=== PATIENT | female | born 1975 | race Caucasian/White ===

== ENCOUNTER 2017-09-30 12:05 | Emergency (ER) | payer OTHER ==
[~2017-09-30] VITALS: Ht 160 cm; Wt 63.5 kg
[~2017-09-30 12:05] MED LIST: ESOM40CA PO; OXYC-323 PO
[2017-09-30 12:15] VITALS: BP 147/95
--- NOTE | 2017-09-30 12:41 | PHYS DOC ---
General Chief Complaint: LACERATION/AVULSION Stated Complaint: HEAD LAC Time Seen by MD: 12:38 Source: patient Exam Limitations: no limitations Problems: History of Present Illness Initial Comments Patient is a 42-year-old female who comes to the ED complaining of head injury. Patient states this is work comp, states that she stood up under a shelf hitting her head. States she was dazed she's had a headache and some photophobia no nausea no loss of consciousness no neck pain. She was sent to the emergency room because she has a laceration which was bleeding. She says her tetanus is up-to-date, no new or progressive symptoms since the injury. Headache is described as global and throbbing moderate in intensity and worse with bright lights. Agreeable to Tylenol in the emergency department Timing/Duration: 1/2 hour Severity: moderate Modifying Factors: worse with movement, improves with rest Associated Symptoms: headaches, malaise, other Allergies: Coded Allergies: codeine (Unverified Allergy, Unknown, Nausea and Vomiting, 05/29/14) Past Medical History Medical History: no pertinent history Surgical History: noncontributory Social History Smoker: non-smoker Alcohol: none Drugs: none Review of Systems Constitutional: denies chills, denies diaphoresis, denies fever, malaise EENTM: denies eye pain, denies blurred vision, denies ear discharge, denies nose congestion, denies throat swelling, denies mouth swelling Respiratory: denies cough, denies shortness of breath Cardiovascular: denies chest pain, denies palpitations, denies syncope Gastrointestinal: denies nausea, denies vomiting Musculoskeletal: denies back pain, denies muscle pain, denies muscle stiffness , denies neck pain Skin: see HPI Psychiatric/Neurological: headache, denies numbness, denies paresthesia, denies seizure, denies weakness Hematologic/Lymphatic: denies blood clots, denies easy bleeding, denies easy bruising Physical Exam General Appearance: WD/WN, mild distress Eyes: bilateral eye normal inspection, bilateral eye PERRL, bilateral eye EOMI Ear, Nose, Throat: hearing grossly normal, normal ENT inspection, normal pharynx, other (other than the scalp laceration that is normocephalic/ atraumatic with negative Smith sign negative raccoon eyes, no ear or nose discharge no fluid behind TMs bilaterally see below for scalp LAC description) Neck: non-tender, full range of motion, supple Respiratory: normal breath sounds, no respiratory distress Gastrointestinal: non tender, soft Back: no CVA tenderness, no vertebral tenderness Extremities: normal range of motion, non-tender, normal inspection 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, no motor/sensory deficits, alert, normal mood/affect (initially somewhat flat affect however throughout the ED course her baseline personality did return affect appeared to be normal.) , oriented x 3 Skin: warm/dry (1 cm superficial linear clean scalp laceration at the left parietal and contused tissue or hematoma no bony deformity or step-off hemostasis spontaneous prior to ED arrival however wound edges remain ) Laceration/Wound Repair Laceration/Wound Repair : Wound Location: head Wound's Depth, Shape: superficial, linear Wound Length (cm): 1 Wound Explored: clean Irrigated w/ Saline (ccs): 50 Betadine Prep?: Yes Anesthesia: Lidocaine w/ Epi Volume Anesthetic (ccs): 6 Wound Debrided: minimal Wound Repaired With: sutures (3 karrie) Number of Sutures: 3 (Karrie) Layer Closure?: No Sterile Dressing Applied?: No Splint Applied?: No Progress Informed consent obtained, analgesia with lidocaine/epinephrine. After wound anesthetized it was cleansed and irrigated by medic. 3 karrie utilized for good wound edge approximation patient tolerated the procedure well without complications. Wound care was discussed verbally and given in written form see departure instructions. Orders, Labs, Meds No imaging has the patient does appear to have a concussion but no neurologic deficit or progressive symptoms. Her concussion symptoms improved throughout the ED course. I discussed wound care [id number] prescription medications. I discussed activity restrictions modifications as well as time off work and work comp status. I discussed stapled wound care and appropriate follow-up signs and symptoms to monitor for as well as indications for urgent return to the department. The patient's questions were answered to her satisfaction and she expressed agreement and understanding with the treatment plan. Departure Time of Disposition: 13:18 Disposition: 01 HOME, SELF-CARE Diagnosis: Work Comp Head Injury, Scalp Laceration Concussion Condition: GOOD Patient Instructions: Concussion and Brain Injury, [id number], Staple Wound Closure, [id number] Additional Instructions: Please review the patient education handout given by ED staff. No exercise athletics for strenuous exercise until cleared by your doctor. Off work through 10/03, note given. [id number] Tylenol as needed for discomfort. Remain in a cool temperature dimly lit environment for optimal symptom control. Aggressive hydration with Gatorade or water. Follow-up with your doctor in 3-5 days for recheck and further activity restriction modifications. Follow-up with your employer regarding Worker's Compensation. Return to ED or follow-up with your doctor in 7 days for wound check and possible staple removal. Return to ED with new or changing symptoms. VIRGILIO TOMAS DO Sep 30, 2017 12:41
[2017-09-30] MEDS ORDERED: ACETAMINOPHEN 500 MG TABLET PO ONE (12:43)
[2017-09-30] MEDS: ACETAMINOPHEN 500 MG TABLET PO ONE (12:45)
[2017-09-30] MEDS: LIDOCAINE 2%/EPI 1:100,000 20 ML VIAL. IJ ONE (13:00)
== END 2017-09-30 13:31 | disposition home or self-care (01) ==
LOC: ER 12:05
DX: S06.0X0A Concussion without loss of consciousness, initial encounter (principal); S01.01XA Laceration without foreign body of scalp, initial encounter; Z88.5 Allergy status to narcotic agent; W22.01XA Walked into wall, initial encounter; Y93.89 Activity, other specified; Y99.8 Other external cause status; Y92.89 Other specified places as the place of occurrence of the external cause
CPT/HCPCS: 12001; 99283-25

== ENCOUNTER 2017-10-07 09:57 | Emergency (ER) | payer OTHER ==
[2017-10-07 10:00] VITALS: BP 127/75
--- NOTE | 2017-10-07 12:52 | ED.ADGEN ---
Past History Past Medical History: No Pertinent History Past Surgical History: No Surgical History Smoking: Non-smoker Alcohol Use: None Drug Use: None Adult General Chief Complaint Chief Complaint Staple removal HPI HPI Patient is a 42 year male who presents for staple removals of scalp. Sod placed 7 days ago. No complications.[] Review of Systems Review of Systems ROS as per HPI. All other systems were reviewed and found to be within normal limits, except as documented in this note. Allergies Allergies Allergies Coded Allergies Type Severity Reaction Last Updated Verified codeine Allergy Unknown Nausea and Vomiting 05/29/14 No Physical Exam Physical Exam Constitutional: Well developed, well nourished, no acute distress, non-toxic appearance. [] HENT: Normocephalic, karrie left parietal scalp-appropriately healed, bilateral external ears normal, oropharynx moist, no oral exudates, nose normal. [] Eyes: PERRLA, EOMI, conjunctiva normal, no discharge. [] Neck: Normal range of motion, no tenderness, supple, no stridor. [] Neurologic: Alert and oriented X 3, normal motor function, normal sensory function, no focal deficits noted. [] Psychologic: Affect normal, judgement normal, mood normal. [] Current Patient Data Vital Signs Vital Signs Date Time Temp Pulse Resp B/P (MAP) Pulse Ox O2 Delivery O2 Flow Rate FiO2 10/07/17 10:00 98.0 67 16 99 Room Air EKG EKG [] Radiology/Procedures Radiology/Procedures [] Course & Med Decision Making Course & Med Decision Making Pertinent Labs and Imaging studies reviewed. (See chart for details) [Karrie removed] Final Impression Final Impression [] Problems: Dragon Disclaimer Dragon Disclaimer This electronic medical record was generated, in whole or in part, using a voice recognition dictation system. JIAN COSTA DO Oct 07, 2017 12:51
== END 2017-10-07 10:20 | disposition home or self-care (01) ==
LOC: ER 09:57
DX: S01.01XD Laceration without foreign body of scalp, subsequent encounter (principal); Z88.5 Allergy status to narcotic agent; X58.XXXD Exposure to other specified factors, subsequent encounter
CPT/HCPCS: 99281

== ENCOUNTER 2021-11-10 11:56 | Emergency (ER) | payer OTHER ==
[~2021-11-10] VITALS: Ht 160 cm; Wt 72.0 kg
[~2021-11-10 11:56] MED LIST changes: -OXYC-323 PO; +OXYC1TAB15 PO
[2021-11-10] MEDS ORDERED: FAMOTIDINE 20 MG/2 ML VIAL IVP ONE (13:00)
[2021-11-10] MEDS ORDERED: LIDO:MAALOX 1:1 20 ML SINGLE DOSE. PO ONE (13:00)
[2021-11-10] MEDS ORDERED: ONDANSETRON PF 4 MG/2 ML VIAL. IVP ONE (13:00)
[2021-11-10 13:15] LABS: AMPHETAMINE/METHAMPHETAMINE NEG (NEG); BARBITURATES NEG (NEG); BENZODIAZEPINES NEG (NEG); CANNABINOIDS NEG (NEG); COCAINE NEG (NEG); METHADONE NEG (NEG); OPIATES NEG (NEG); PHENCYCLIDINE NEG (NEG)
[2021-11-10 13:20] LABS: BILIRUBIN,URINE NEG (NEG); CLARITY,URINE CLEAR; COLOR,URINE YELLOW; GLUCOSE,URINE NEG (NEG)
[2021-11-10 13:21] LABS: BACTERIA,URINE 0 /HPF (0-FEW); NITRITE,URINE NEG (NEG); SQUAMOUS EPITHELIAL CELL,UR MANY /LPF; UROBILINOGEN,URINE 0.2 mg/dL (0.2 mg/dL); WBC,URINE OCC /HPF (0-4)
--- NOTE | 2021-11-10 13:30 | RAD ---
EXAM: Abdomen, single view. HISTORY: Pain. COMPARISON: None. FINDINGS: Frontal views of the abdomen are obtained. There is no bowel obstruction. There is a small amount of stool within the proximal colon. There is no free air. IMPRESSION: Nonobstructive bowel gas pattern. Electronically signed by: Josette Trinidad MD (11/10/2021 1:28 PM) [id number]
[2021-11-10 13:46] LABS: BASO # 0.1 x10^3/uL (0.0-0.2); BASO % 2 % (0-3); EOS % 1 % (0-3); HEMATOCRIT 34.5 % (36.0-47.0); HEMOGLOBIN 10.9 g/dL (12.0-15.5); LYMPH # 0.7 x10^3/uL (1.0-4.8); LYMPH % 11 % (24-48); MEAN CORPUSCULAR HEMOGLOBIN 23 pg (25-35); MEAN CORPUSCULAR HGB CONC 32 g/dL (31-37); MEAN CORPUSCULAR VOLUME 72 fL (79-100); MONO # 0.3 x10^3/uL (0.0-1.1); MONO % 5 % (0-9); NEUT % 81 % (31-73); PLATELET COUNT 215 x10^3/uL (140-400); RED BLOOD COUNT 4.81 x10^6/uL (3.50-5.40); RED CELL DISTRIBUTION WIDTH 16.5 % (11.5-14.5); WHITE BLOOD COUNT 6.2 x10^3/uL (4.0-11.0)
[2021-11-10] MEDS ORDERED: IOHEXOL 300 MG/ML 75 ML VIAL. IV ONE (14:15)
[2021-11-10] MEDS ORDERED: CONTRAST GIVEN. MC PRN (14:30)
[2021-11-10 14:44] LABS: CALCIUM 8.7 mg/dL (8.5-10.1); CREATININE 0.8 mg/dL (0.6-1.0); GFR 77.2; POTASSIUM 3.3 mmol/L (3.5-5.1)
--- NOTE | 2021-11-10 14:44 | RAD ---
EXAM: Abdomen and pelvis CT with intravenous contrast. HISTORY: Pain. TECHNIQUE: Computed tomographic images of the abdomen and pelvis were obtained following the administ ration of intravenous contrast. Multiplanar reformatting was performed. *One or more of the following individualized dose reduction techniques were utilized for this examina tion: 1. Automated exposure control. 2. Adjustment of the mA and/or kV according to patient size. 3. Use of iterative reconstruction technique. COMPARISON: None. FINDINGS: Evaluation of the lower thorax is unremarkable. No hepatic lesion is seen. The gallbladder is surgically absent. There is a prominent common bile duct, likely due to reservoir effect status po st cholecystectomy. The pancreas, spleen and adrenal glands are unremarkable. There is a tiny simple left renal cyst. There is no hydronephrosis. There is no appendicitis. There is no bowel obstruction. There is distal colonic diverticulosis. Ther e is no diverticulitis. The bladder is nearly empty. There are multiple uterine fibroids. The aorta i s normal in caliber. There is no lymphadenopathy. There is no acute or suspicious osseous finding. Th ere are degenerative changes involving the spine. IMPRESSION: 1. No acute abdominal or pelvic finding. 2. Colonic diverticulosis. 3. Biliary ductal dilatation likely due to reservoir effect status post cholecystectomy. 4. Multiple uterine fibroids. Electronically signed by: Josette Trinidad MD (11/10/2021 2:42 PM) [id number]
[2021-11-10 14:50] LABS: ALBUMIN 3.9 g/dL (3.4-5.0); TOTAL BILIRUBIN 0.4 mg/dL (0.2-1.0); TOTAL PROTEIN 7.8 g/dL (6.4-8.2)
[2021-11-10] MEDS ORDERED: FAMO20TA5 PO (15:24)
--- NOTE | 2021-11-10 15:24 | PHYS DOC ---
Past History Past Medical History: No Pertinent History Past Surgical History: Cholecystectomy, Tonsillectomy Smoking: Non-smoker Alcohol Use: None Drug Use: None Adult General Chief Complaint Chief Complaint: ABDOMINAL PAIN HPI HPI Patient is a 46-year-old female patient presenting to the ED today complaining of 5 out of 10 sharp epigastric abdominal pain, symptoms have been going on for 10 days. Patient denies any fever, nausea, vomiting, diarrhea. Reports history of cholecystectomy and gastritis. Denies any relieving factors to her symptoms. States symptoms are worse on palpating her epigastric region. Review of Systems Review of Systems Constitutional: Denies fever or chills [] Eyes: Denies change in visual acuity, redness, or eye pain [] HENT: Denies nasal congestion or sore throat [] Respiratory: Denies cough or shortness of breath [] Cardiovascular: No additional information not addressed in HPI [] GI: Reports epigastric abdominal pain, denies nausea, vomiting, bloody stools or diarrhea [] : Denies dysuria or hematuria [] Musculoskeletal: Denies back pain or joint pain [] Integument: Denies rash or skin lesions [] Neurologic: Denies headache, focal weakness or sensory changes [] All other systems were reviewed and found to be within normal limits, except as documented in this note. Current Medications Current Medications Current Medications Medications (Trade) Dose Ordered Sig/Juana Start Time Stop Time Status Last Admin Dose Admin Famotidine (Pepcid Vial) 20 mg 1X ONCE 11/10/21 13:00 11/10/21 13:07 DC 11/10/21 13:37 20 MG Fentanyl Citrate (Fentanyl 2ml Vial) 50 mcg 1X ONCE 11/10/21 13:00 11/10/21 13:07 DC Info (Do NOT chart on this entry -- for MONITORING) 1 each PRN DAILY PRN 11/10/21 14:30 11/12/21 14:29 Iohexol (Omnipaque 300 Mg/ml) 75 ml 1X ONCE 11/10/21 14:15 11/10/21 14:16 DC 11/10/21 14:20 75 ML Multi-Ingredient Mouthwash/Gargle (Gi Cocktail) 20 ml 1X ONCE 11/10/21 13:00 11/10/21 13:07 DC 11/10/21 13:24 20 ML Ondansetron HCl (Zofran) 4 mg 1X ONCE 11/10/21 13:00 11/10/21 13:07 DC 11/10/21 13:35 4 MG Allergies Allergies Allergies Coded Allergies Type Severity Reaction Last Updated Verified Penicillins Allergy Unknown 11/10/21 Yes codeine Allergy Unknown Nausea and Vomiting 05/29/14 No shellfish derived Allergy Unknown 11/10/21 Yes Physical Exam Physical Exam Constitutional: Well developed, well nourished, no acute distress, non-toxic appearance. [] HENT: Normocephalic, atraumatic, bilateral external ears normal, oropharynx moist, no oral exudates, nose normal. [] Eyes: PERRLA, EOMI, conjunctiva normal, no discharge. [] Neck: Normal range of motion, no tenderness, supple, no stridor. [] Cardiovascular:Heart rate regular rhythm, no murmur [] Lungs & Thorax: Bilateral breath sounds clear to auscultation [] Abdomen: Bowel sounds normal, soft, no tenderness, no masses, no pulsatile masses. [] Skin: Warm, dry, no erythema, no rash. [] Back: No tenderness, no CVA tenderness. [] Extremities: No tenderness, no cyanosis, no clubbing, ROM intact, no edema. [] Neurologic: Alert and oriented X 3, normal motor function, normal sensory function, no focal deficits noted. [] Psychologic: Affect normal, judgement normal, mood normal. [] Current Patient Data Vital Signs Vital Signs Date Time Temp Pulse Resp B/P (MAP) Pulse Ox O2 Delivery O2 Flow Rate FiO2 11/10/21 12:20 98.6 111 169/97 (121) 100 Room Air Lab Results Laboratory Tests Test 11/10/21 12:35 11/10/21 12:41 11/10/21 13:18 11/10/21 14:02 Urine Collection Type Clean catch Urine Color Yellow Urine Clarity Clear Urine pH 5.5 Urine Specific [place] 1.025 Urine Protein Trace (NEG-TRACE) Urine Glucose (UA) Neg mg/dL (NEG) Urine Ketones (Stick) Neg mg/dL (NEG) Urine Blood Mod (NEG) Urine Nitrite Neg (NEG) Urine Bilirubin Neg (NEG) Urine Urobilinogen Dipstick 0.2 mg/dL (0.2 mg/dL) Urine Leukocyte Esterase Neg (NEG) Urine RBC 3-5 /HPF (0-2) Urine WBC Occ /HPF (0-4) Urine Squamous Epithelial Cells Many /LPF Urine Bacteria 0 /HPF (0-FEW) Urine Opiates Screen Neg (NEG) Urine Methadone Screen Neg (NEG) Urine Barbiturates Neg (NEG) Urine Phencyclidine Screen Neg (NEG) Urine Amphetamine/Methamphetamine Neg (NEG) Urine Benzodiazepines Screen Neg (NEG) Urine Cocaine Screen Neg (NEG) Urine Cannabinoids Screen Neg (NEG) Urine Ethyl Alcohol Neg (NEG) POC Urine HCG, Qualitative hcg negative (Negative) White Blood Count 6.2 x10^3/uL (4.0-11.0) Red Blood Count 4.81 x10^6/uL (3.50-5.40) Hemoglobin 10.9 g/dL (12.0-15.5) L Hematocrit 34.5 % (36.0-47.0) L Mean Corpuscular Volume 72 fL (79-100) L Mean Corpuscular Hemoglobin 23 pg (25-35) L Mean Corpuscular Hemoglobin Concent 32 g/dL (31-37) Red Cell Distribution Width 16.5 % (11.5-14.5) H Platelet Count 215 x10^3/uL (140-400) Neutrophils (%) (Auto) 81 % (31-73) H Lymphocytes (%) (Auto) 11 % (24-48) L Monocytes (%) (Auto) 5 % (0-9) Eosinophils (%) (Auto) 1 % (0-3) Basophils (%) (Auto) 2 % (0-3) Neutrophils # (Auto) 5.0 x10^3uL (1.8-7.7) Lymphocytes # (Auto) 0.7 x10^3/uL (1.0-4.8) L Monocytes # (Auto) 0.3 x10^3/uL (0.0-1.1) Eosinophils # (Auto) 0.0 x10^3/uL (0.0-0.7) Basophils # (Auto) 0.1 x10^3/uL (0.0-0.2) Sodium Level 140 mmol/L (136-145) Potassium Level 3.3 mmol/L (3.5-5.1) L Chloride Level 104 mmol/L (98-107) Carbon Dioxide Level 25 mmol/L (21-32) Anion Gap 11 (6-14) Blood Urea Nitrogen 9 mg/dL (7-20) Creatinine 0.8 mg/dL (0.6-1.0) Estimated GFR (Cockcroft-Gault) 77.2 BUN/Creatinine Ratio 11 (6-20) Glucose Level 93 mg/dL (70-99) Calcium Level 8.7 mg/dL (8.5-10.1) Total Bilirubin 0.4 mg/dL (0.2-1.0) Aspartate Amino Transferase (AST) 19 U/L (15-37) Alanine Aminotransferase (ALT) 20 U/L (14-59) Alkaline Phosphatase 67 U/L (46-116) Total Protein 7.8 g/dL (6.4-8.2) Albumin 3.9 g/dL (3.4-5.0) Albumin/Globulin Ratio 1.0 (1.0-1.7) Lipase 135 U/L (73-393) Ethyl Alcohol Level < 10 mg/dL (0-10) EKG EKG [] Radiology/Procedures Radiology/Procedures []PROCEDURE: CT ABD PELV W/ IV CONTRST ONLY EXAM: Abdomen and pelvis CT with intravenous contrast. HISTORY: Pain. TECHNIQUE: Computed tomographic images of the abdomen and pelvis were obtained following the administration of intravenous contrast. Multiplanar reformatting was performed. *One or more of the following individualized dose reduction techniques were utilized for this examination: 1. Automated exposure control. 2. Adjustment of the mA and/or kV according to patient size. 3. Use of iterative reconstruction technique. COMPARISON: None. FINDINGS: Evaluation of the lower thorax is unremarkable. No hepatic lesion is seen. The gallbladder is surgically absent. There is a prominent common bile duct, likely due to reservoir effect status post cholecystectomy. The pancreas, spleen and adrenal glands are unremarkable. There is a tiny simple left renal cyst. There is no hydronephrosis. There is no appendicitis. There is no bowel obstruction. There is distal colonic diverticulosis. There is no diverticulitis. The bladder is nearly empty. There are multiple uterine fibroids. The aorta is normal in caliber. There is no lymphadenopathy. There is no acute or suspicious osseous finding. There are degenerative changes involving the spine. IMPRESSION: 1. No acute abdominal or pelvic finding. 2. Colonic diverticulosis. 3. Biliary ductal dilatation likely due to reservoir effect status post cholecystectomy. 4. Multiple uterine fibroids. Electronically signed by: Josette Trinidad MD (11/10/2021 2:42 PM) [id number] DICTATED AND SIGNED BY: JOSETTE TRINIDAD MD DATE: 11/10/21 1439 CC: CUATE WATTS APRN; JASMEET MOROCHO DO ~MTH0 0 PROCEDURE: ABDOMEN SUPINE & UPRIGHT EXAM: Abdomen, single view. HISTORY: Pain. COMPARISON: None. FINDINGS: Frontal views of the abdomen are obtained. There is no bowel obstruction. There is a small amount of stool within the proximal colon. There is no free air. IMPRESSION: Nonobstructive bowel gas pattern. Electronically signed by: Josette Trinidad MD (11/10/2021 1:28 PM) [id number] DICTATED AND SIGNED BY: JOSETTE TRINIDAD MD DATE: 11/10/21 1327 CC: CUATE WATTS APRN; JASMEET MOROCHO DO ~MTH0 0 Heart Score C/O Chest Pain: N/A Risk Factors: Risk Factors: DM, Current or recent (<one month) smoker, HTN, HLP, family history of CAD, obesity. Risk Scores: Risk Factors: DM, Current or recent (<one month) smoker, HTN, HLP, family history of CAD, obesity. Course & Med Decision Making Course & Med Decision Making Pertinent Labs and Imaging studies reviewed. (See chart for details) This is a 46-year-old female patient presenting to the ED today complaining of epigastric abdominal pain for 10 days. Negative urine hCG, CBC CMP with nothing really acute. UA negative for infection, CT of the abdomen and pelvis negative for any acute findings, noted for fibroids in the uterus. This can be followed up with an LAYOUT DESIGNER. Instructed to follow-up with GI for abdominal pain. Also recommended PCP for follow-up Dragon Disclaimer Dragon Disclaimer This electronic medical record was generated, in whole or in part, using a voice recognition dictation system. Departure Departure: Impression: Primary Impression: Epigastric pain Additional Impression: Uterine fibroid Disposition: HOME / SELF CARE / HOMELESS Condition: STABLE Referrals: JASMEET MOROCHO DO (PCP) follow up in one week with your primary care doctor as well as tung nut grower. Patient Instructions: Abdominal Pain Additional Instructions: You were evaluated in the emergency room for epigastric abdominal pain. Your lab work is negative for any acute findings. Your CT of the abdomen and pelvis is negative for any acute findings. You have some fibroids in the uterus, this is not an emergency and this can be followed up with an LAYOUT DESIGNER on outpatient. Scripts Famotidine (FAMOTIDINE) 20 Mg Tablet 1 TAB PO DAILY, #20 TAB Prov: CUATE WATTS APRN 11/10/21 Problem Qualifiers Additional Impression: Uterine fibroid Uterine leiomyoma location: unspecified location Qualified Codes: D25.9 - Leiomyoma of uterus, unspecified CUATE WATTS APRN Nov 10, 2021 15:24
[2021-11-10 15:39] VITALS: BP 127/79
== END 2021-11-10 15:45 | disposition home or self-care (01) ==
LOC: ER 11:56
DX: D25.9 Leiomyoma of uterus, unspecified (principal); R10.13 Epigastric pain; Z90.49 Acquired absence of other specified parts of digestive tract; Z88.0 Allergy status to penicillin; Z88.5 Allergy status to narcotic agent; Z91.013 Allergy to seafood
CPT/HCPCS: 36415; 74019; 74177; 80053; 80307; 81001; 81025; 83690; 85025; 96374; 96375; 99285; G0480; J2405; J3490; Q9967